=== PATIENT | female | born 1970 | race Caucasian/White ===

== ENCOUNTER 2021-09-09 08:27 | Outpatient (REF) | payer OTHER, MEDICAID, SELFPAY ==
--- NOTE | ~2021-09-09 | US_ITS ---
EXAMINATION: US ABDOMEN COMPLETE CLINICAL INFORMATION: Epigastric pain. COMPARISON: None TECHNIQUE: Real-time imaging of the abdominal viscera. FINDINGS: PANCREAS: The visualized pancreas is normal in size and contour and echogenicity. No pancreatic ductal distention. Distal body and tail obscured by bowel gas and not completely imaged. ABDOMINAL AORTA: The proximal, mid, and distal segments are normal in caliber. INFERIOR VENA CAVA: Visualized portions are normal. LIVER: The liver is normal in size and smooth in contour. Hepatic parenchyma is homogeneous and within normal. No focal hepatic parenchymal lesion or intrahepatic ductal dilatation. GALLBLADDER: Normal. The gallbladder is physiologically distended without evidence of stones, sludge, polyps, wall thickening or pericholecystic fluid. COMMON BILE DUCT: Mild fullness common duct, measuring 0.8 cm. No visible intraluminal calculus or sludge or wall thickening. RIGHT KIDNEY: No hydronephrosis. No renal calculi or focal parenchymal lesions. The kidney measures 12.2 cm in maximum dimension. There is suspicion for duplicated collecting system. LEFT KIDNEY: Normal. No hydronephrosis. No renal calculi or focal parenchymal lesions. The kidney measures 13.0 cm in maximum dimension. SPLEEN: Normal. The spleen measures 10.9 cm in maximum dimension. FREE FLUID: None. US/US abdomen complete IMPRESSION: 1. Unremarkable gallbladder. Mild fullness common duct, 8 mm. No intrahepatic ductal dilatation. 2. Visualized pancreas unremarkable. 3. No hydronephrosis.
== END 2021-09-09 08:28 | disposition home or self-care (01) ==
LOC: HO.HMGCX 08:27
PROVIDERS: Visit Provider Internal Medicine
DX: R10.13 Epigastric pain (principal)
CPT/HCPCS: 76700

== ENCOUNTER 2021-10-23 14:10 | Outpatient (REF) | payer OTHER, MEDICAID, SELFPAY ==
[2021-10-23 14:56] LABS: Alanine Aminotransferase 16 U/L (0-31); Alkaline Phosphatase 90 U/L (39-117); Aspartate Amino Transferase 15 U/L (5-31); Bilirubin Direct 0.2 mg/dL (0.0-0.5); Bilirubin Total 0.4 mg/dL (0.0-1.0)
== END 2021-10-23 14:11 | disposition home or self-care (01) ==
LOC: HO.LAB 14:10
PROVIDERS: PCP Internal Medicine; Visit Provider Internal Medicine
DX: K83.9 Disease of biliary tract, unspecified (principal)
CPT/HCPCS: 36415; 80076

== ENCOUNTER 2024-10-17 10:13 | Outpatient (REF) | payer OTHER, SELFPAY ==
--- OUTSIDE RECORDS SUMMARY | 2024-10-17 11:27 | XMS_ITS | Data Portability ---
Author Organization [facility] Service Address [address] [place] [address] Assessment Encounter Date Assessment Date Assessment LastModified by Organization Details LastModified Time 09/06/2021 09/06/2021 Patient agreed and verbally consents to this audio and video Telehealth appt via a secure platform [email or web address] Not available 09/06/2021 13:38:47 Plan of Treatment Reminders Order Date Submit Date Provider Last Modified By Organization Details Last Modified Time Details Appointments ANNUAL EXAM 2024 09:30A M PEPE WHITTAKER Not available Not available Not available ANNUAL EXAM 2025 09:30A M PEPE WHITTAKER Not available Not available Not available Lab lh + FSH, serum 2024 025 [facility], [address] [place] [address], [id number], 10/17/2024 10:02:13 progest erone, serum 2024 025 [facility], [address] [place] [address], [address], 10/17/2024 10:02:12 estradi ol, serum 2024 025 [facility], [address] [place] [address], [address], 10/17/2024 10:02:13 CMP, serum or plasma 2024 025 [facility], [address] [place] [address], [address], 10/17/2024 10:02:12 CBC w/ auto diff 2024 025 [facility], [address] [place] [address], [address], 10/17/2024 10:02:12 lipid panel, blood 2024 025 [facility], [address] [place] [address], [address], 10/17/2024 10:02:13 TSH + free T4, serum 2024 025 [facility], [address] [place] [address], [address], 10/17/2024 10:02:12 vitamin D, 25-hydr oxy, total, serum 2024 025 [facility], [address] [place] [address], [address], 10/17/2024 10:02:12 hemoglo bin A1c, QN, blood 2024 025 [facility], [address] [place] [address], [address], 10/17/2024 10:02:13 vitamin B12 + folate, serum or blood 2024 025 [facility], [address] [place] [address], [address], 10/17/2024 10:02:12 PTH (parath yroid hormone ), intact + calcium , serum or plasma 2023 024 [email or web address] (Centralized Electronic Ordering - All Locations), Patient Can Go To The Location Of Their Choice, [id number] 10/09/2023 10:38:05 CMP, serum or plasma 2023 024 [facility] (Centralized Electronic Ordering - All Locations), Patient Can Go To The Location Of Their Choice, [id number] 10/09/2023 10:38:05 CBC w/ auto diff 2023 024 [facility] (Centralized Electronic Ordering - All Locations), Patient Can Go To The Location Of Their Choice, 10/09/2023 10:38:05 lipid panel, blood 2023 024 [facility] (Centralized Electronic Ordering - All Locations), Patient Can Go To The Location Of Their Choice, 10/09/2023 10:38:05 CMP, serum or plasma 2021 022 [facility] (Centralized Electronic Ordering - All Locations), Patient Can Go To The Location Of Their Choice, 08/12/2022 16:35:17 CBC w/ auto diff 2021 022 [facility] (Centralized Electronic Ordering - All Locations), Patient Can Go To The Location Of Their Choice, 08/12/2022 16:35:17 lipid panel, blood 2021 022 [facility] (Centralized Electronic Ordering - All Locations), Patient Can Go To The Location Of Their Choice, [id number] 08/12/2022 16:35:[address] & immunol ogist referra l 2022 023 [email or web address] Not available 12/02/2022 09:09:44 gastroe nterolo gist referra l 2022 023 [email or web address] Charley Mcmanus MD, [address], [place], [address], 04/17/2023 08:35:48 Procedures None recorde d. Surgeries None recorde d. Imaging XR, chest, 2 view 2022 023 [facility], [address], [place], [address], 12/01/2022 13:12:18 XR, sinuses , paranas al, 3 or more view 2021 022 [email or web address] [facility] ([facility]), [address], [place], [address], 09/13/2021 09:55:04 Medication Orders Wixela Inhub 500 mcg-50 mcg/dos e powder for inhalat ion 2024 025 [facility], [address] , [place], [address], 10/17/2024 10:05:22 albuter ol sulfate HFA 90 mcg/act uation aerosol inhaler 2024 025 [facility], [address] , [place], [address], 10/17/2024 10:05:22 paroxet ine 10 mg tablet 2023 024 [facility]1230, [address] [facility], [place], [address], 11/03/2023 10:31:53 montelu kast 10 mg tablet 2022 023 [facility], [address] , [place], [address], 12/01/2022 10:59:55 budeson shadi 32 mcg/act uation nasal spray 2022 023 [facility], [address] , [place], [address], 10/09/2023 10:29:14 Trelegy Ellipta 100 mcg-62. 5 mcg-25 mcg powder for inhalat ion 2022 023 [facility], [address] , [place], [address], 01/08/2024 15:00:38 famotid ine 40 mg tablet 2022 023 [facility], [address] [facility], [place], [address], 12/01/2022 11:03:56 bupropi on HCl XL 150 mg 24 hr tablet, extende d release 2021 022 [facility], [address] [facility] [facility], [facility], [place], [address], 08/12/2022 16:23:30 doxycyc line hyclate 100 mg tablet 2021 022 [email or web address] [facility]1230, [address] [facility], [place], [address], 10/09/2023 10:30:08 Patient TargetsNo targets recorded. 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 [address], [place], [address], 08/12/2022 08:49:52 10/24/19 22 10/23/2021 XR, sinus es, paran finn, 3 or more view No observ ation record ed. [facility] ([facility]) [address], [place], [address], 10/23/2021 16:11:02 11/02/19 22 11/01/2021 MAMMO , scree lenny, digit al, bilat eral No observ ation record ed. [address] ([facility]) [address], [place], [address], 11/02/2021 09:31:56 12/02/19 23 12/01/2022 XR, chest , 2 view No observ ation record ed. [email or web address] [place] [address] Radiology [address] [place], [address], 12/01/2022 14:27:22 04/15/20 23 04/15/2023 MAMMO , scree lenny, digit al, bilat eral No observ ation record ed. [email or web address] ([facility]) [address], [place], [address], 04/16/2023 08:40:32 11/24/19 24 11/24/2023 XR, chest , 2 view No observ ation record ed. [facility] [address] [place], [address], 11/27/2023 09:22:06 12/16/19 24 12/16/2023 CT, chest , w/o contr ast No observ ation record ed. [facility] [address] [place], [address], 12/18/2023 08:56:22 Result Notes None recorded. Problems Name Problem SNOMED Code Status Onset Date Resolution Date Notes Provider Name and Address Organization Details Recorded Time Celiac disease 805078170 Active 2017 Not Available [facility] 02:41:29 Asthma 929811559 Active 2017 Not Available [facility] 3 02:41:29 Anxiety 43057381 Active 2017 Not Available [facility] 02:41:29 Depressive disorder 02788327 Active 2017 Not Available [facility] 3 02:41:29 Hiatal hernia 60275763 Active 2020 Not Available [facility] 3 02:41:29 Cough 86408700 Active 2022 Not Available [facility] 3 02:41:29 Asthmatic bronchitis 611581958 Active 2022 Not Available [facility] 3 02:41:29 Allergic rhinitis 82907139 Active 2022 Not Available [facility] 3 02:41:29 Gastroesop hageal reflux disease 386973030 Active 2022 Not Available [facility] 3 02:41:29 Infection of tick bite 067627037 Active 2022 PEPE WHITTAKER [address] [place] [address], [address], [facility] 3 10:02:21 Perimenopa usal disorder 204210922 Active 2023 PEPE WHITTAKER [address] [place] [address], [address], [facility] 4 10:31:49 Chronic cough 60851394 Active 2023 PEPE WHITTAKER [address] [place] [address], [address], [facility] 4 08:56:44 Migraine 42448707 Active 2023 PEPE WHITTAKER [address] [place], [address], [facility] 4 14:59:17 COVID-19 252856565 Active 2023 PEPE WHITTAKER [address] [place], [address], [facility] 4 12:16:19 Exacerbati on of intermitte nt asthma 160613272 Active 2023 PEPE WHITTAKER [address] [place], [address], [facility] 4 16:45:48 Streptococ althea sore throat 23843397 Active 2024 PEPE WHITTAKER [address] [place], [address], [facility] 5 11:25:51 Menopause Active 2024 PEPE WHITTAKER [address] [place], [address], [facility] 5 09:57:05 Moderate persistent asthma 817464080 Active 2024 PEPE WHITTAKER [address] [place], [address], [facility] 5 10:07:46 Notes:Some problems listed i n Documents: #[id number], #[id number] could not be added to this patient's chart. Please review these documents and add these problems to the patient's chart manually as needed. Problem Notes None recorded. Procedures Surgical History Date Name Laterality Status Provider Name and Address Organization Details Recorded Time 05/28/2020 Date of Last Pap Smear completed Jane Gipson [facility] 06/06/2020 08:32:01 Imaging Results Imaging Date Name Status [facility]Modified by [facility] Details LastModified Time 10/23/2021 XR, sinuses, paranasal, 3 or more view completed [email or web address] [facility]) [address], [place], [address], 10/23/2021 16:11:02 11/01/2021 MAMMO, screening, digital, bilateral completed [email or web address] [facility]) [address], [place], [address], 11/02/2021 09:31:56 12/01/2022 XR, chest, 2 view completed [email or web address] [facility] [address] [place], [address], 12/01/2022 14:27:22 04/15/2023 MAMMO, screening, digital, bilateral completed [email or web address] [facility]) [address], [place], [address], 04/16/2023 08:40:32 11/24/2023 XR, chest, 2 view completed [facility] [address] [place], [address], 11/27/2023 09:22:06 12/16/2023 CT, chest, w/o contrast completed [facility] [address] [place], [address], 12/18/2023 08:56:22 Procedure Notes None recorded. Medical Equipment None Reported. Allergies Allergen ID Allergen Name Allergen Category Reaction Reaction Severity Criticality Documentation Date Start Date Code Code System Note Provider Name and Address Organization Details Recorded Time 2284 wheat gluten extract food Not available Not available Not available 05/05/2018 46812 81 RxNorm Tangela negrete [place] - [facility] 8 16:23:12 No known drug allergies Medications Name Sig Start Date Stop Date Status Note LastModified by Organization Details LastModified Time Prescriptio n - Renewal 11/10 completed Not Available Not Available Not Available cyclobenzap rine 10 mg tablet 07/31 completed Not Available Not Available Not Available budesonide 32 mcg/actuati on nasal spray TAKE 1 SPRAY EVERY DAY BY NASAL ROUTE 10/09 completed Not Available Not Available Not Available prednisone 10 mg tablet TAKE 6 TABLETS DAILY FOR 2 DAYS, 5 TABS X 2, 4 TABS X 2, 3 TABS X 2, 2 TABS X 2, 1 TAB X 2 09/16 completed Not Available Not Available Not Available doxycycline hyclate 100 mg capsule TAKE 1 CAPSULE BY MOUTH TWICE A DAY FOR 10 DAYS 12/01 completed Not Available Not Available Not Available paroxetine 10 mg tablet TAKE 1 TABLET BY MOUTH EVERY DAY FOR 30 DAYS 2023 active Not Available Not Available Not Avai lable cefuroxime axetil 250 mg tablet Take 1 tablet every 12 hours by oral route. 03/15 completed Not Available Not Available Not Available azithromyci n 250 mg tablet TAKE 2 TABLETS BY MOUTH TODAY, THEN TAKE 1 TABLET DAILY FOR 4 DAYS DIRECTED 09/16 completed Not Available Not Available Not Available fluconazole 150 mg tablet TAKE 1 TABLET A SINGLE DOSE BY MOUTH THEN REPEAT 1 DOSE IN 3 DAYS active Not Available Not Available No t Available sucralfate 1 gram tablet 03/15 completed Not Available Not Available Not Available famotidine 40 mg tablet TAKE 1 TABLET BY MOUTH EVERY DAY active Not Available Not Available No t Available sumatriptan 50 mg tablet TAKE ONE TABLET FOR MIGRAINE CAN REPEAT AFTER ONE HOUR IF NO IMPROVEME NT MAX 200 MG active Not Available Not Available No t Available topiramate 25 mg tablet TAKE 1 TABLET BY MOUTH EVERY DAY FOR 30 DAYS active Not Available Not Available No t Available omeprazole 40 mg capsule,del ayed release TAKE 1 CAPSULE BY MOUTH EVERY DAY active Not Available Not Available No t Available bupropion HCl 100 mg tablet 1 po daily 03/15 completed Not Available Not Available Not Available amoxicillin 875 mg tablet TAKE 1 TABLET BY MOUTH EVERY 12 HOURS FOR 7 DAYS 10/17 completed Not Available Not Available Not Available cephalexin 500 mg capsule TAKE 1 CAPSULE BY MOUTH THREE TIMES A DAY FOR 5 DAYS 08/12 completed Not Available Not Available Not Available omeprazole 20 mg capsule,del ayed release TAKE 1 CAPSULE BY MOUTH EVERY DAY 12/01 completed Not Available Not Available Not Available montelukast 10 mg tablet TAKE 1 TABLET BY MOUTH EVERY DAY active Not Available Not Available No t Available ranitidine 150 mg capsule 03/15 completed Not Available Not Available Not Available azelastine 137 mcg (0.1 %) nasal spray USE 2 SPRAYS NASALLY TWICE A DAY DIRECTED active Not Available Not Available No t Available methylpredn isolone 4 mg tablets in a dose pack USE DIRECTED. 10/17 completed Not Available Not Available Not Available albuterol sulfate HFA 90 mcg/actuati on aerosol inhaler TAKE 2 PUFFS BY MOUTH EVERY 4 HOURS 2024 active Not Available Not Available Not Avai lable cefdinir 300 mg capsule Take 1 capsule every 12 hours by oral route for 10 days. 11/10 completed Not Available Not Available Not Available topiramate 100 mg tablet TAKE 1 TABLET BY MOUTH EVERY DAY active Not Available Not Available No t Available fluticasone propionate 50 mcg/actuati on nasal spray,suspe nsion SPRAY 2 SPRAYS INTO EACH NOSTRIL EVERY DAY active Not Available Not Available No t Available doxycycline hyclate 100 mg tablet TAKE 1 TABLET BY MOUTH TWICE A DAY FOR 14 DAYS 10/09 completed Not Available Not Available Not Available amoxicillin 875 mg-potassiu m clavulanate 125 mg tablet TAKE 1 TABLET BY MOUTH EVERY 12 HOURS FOR 7 DAYS 10/09 completed Not Available Not Available Not Available bupropion HCl XL 300 mg 24 hr tablet, extended release TAKE 1 TABLET BY MOUTH EVERY DAY active Not Available Not Available No t Available bupropion HCl XL 150 mg 24 hr tablet, extended release TAKE 1 TABLET BY MOUTH EVERY DAY active Not Available Not Available No t Available topiramate 50 mg tablet TAKE 1 TABLET BY MOUTH EVERY DAY active Not Available Not Available No t Available Trelegy Ellipta 100 mcg-62.5 mcg-25 mcg powder for inhalation INHALE 1 PUFF INTO THE LUNGS EVERY DAY 01/07 completed Not Available Not Available Not Available Wixela Inhub 250 mcg-50 mcg/dose powder for inhalation INHALE 1 PUFF BY MOUTH TWICE A DAY 10/17 completed Not Available Not Available Not Available Wixela Inhub 500 mcg-50 mcg/dose powder for inhalation Inhale 1 puff twice a day by inhalatio n route as directed for 30 days. 2024 active Not Available Not Available Not Avai lable Fluzone Quad (PF) 60 mcg (15 mcg x 4)/0.5 mL IM syringe 04/22 completed Not Available Not Available Not Available Paxlovid 300 mg (150 mg x 2)-100 mg tablets in a dose pack Take 1 dose pk by oral route. 09/16 completed Not Available Not Available Not Available Vitals Date Recorded Body height Body mass index (BMI) Body weight Heart rate Oxygen saturation Oxygen saturation in Arterial blood by Pulse oximetry Systolic blood pressure Diastolic blood pressure Provider Name and Address Organization Details Last Updated DateTime 2 161.29 cm 27.5 kg/m2 72482.8 g 74 /min 98 % 98 % 110 mm[Hg] 68 mm[Hg] PEPE WHITTAKER [address] [place], [address] [place] [address] Internal Medicine 2 15:55:20 Date Recorded Body height Body mass index (BMI) Body weight Heart rate Oxygen saturation Oxygen saturation in Arterial blood by Pulse oximetry Systolic blood pressure Diastolic blood pressure Provider Name and Address Organization Details Last Updated DateTime 3 161.29 cm 27.2 kg/m2 38109.4 1 g 82 /min 99 % 99 % 152 mm[Hg] 84 mm[Hg] Erika Forbes [facility] 3 10:37:06 Date Recorded Body height Body mass index (BMI) Body weight Heart rate Oxygen saturation Oxygen saturation in Arterial blood by Pulse oximetry Systolic blood pressure Diastolic blood pressure Provider Name and Address Organization Details Last Updated DateTime 4 161.29 cm 27.2 kg/m2 58645.4 1 g 60 /min 98 % 98 % 128 mm[Hg] 80 mm[Hg] Erika Forbes [facility] 4 10:23:15 Date Recorded Body height Body mass index (BMI) Body weight Heart rate Oxygen saturation Oxygen saturation in Arterial blood by Pulse oximetry Systolic blood pressure Diastolic blood pressure Provider Name and Address Organization Details Last Updated DateTime 5 161.29 cm 24.7 kg/m2 25550.9 6 g 68 /min 97 % 97 % 124 mm[Hg] 82 mm[Hg] Paula Canseco [facility] 5 09:37:04 Social History Question Answer Notes LastModified by Organizat ion Details LastModified Time Tobacco Smoking Status Never Smoker Not Available [facility] 06/26/2020 03:36:23 What Was The Date Of Your Most Recent Tobacco Screening? 10/17/2024 [email or web address] Information not available 10/17/2024 Do You Or Have You Ever Used Any Other Forms Of Tobacco Or Nicotine? No [email or web address] Information not available 08/12/2022 Sex: Unknown Functional Status None recorded. Mental Status None recorded. Family History Relationship Description Onset Age of this Age Resolved Age Notes LastModified by Organization Details LastModified Time Mother Mitral valve stenosis 62 [email or web address] Not available 2017 15:09:40 Medical History Condition Response Coronary Artery Disease N Gout N Other Kidney Stones N Blood Diseases N Hyperthyroidism N Blood Transfusion N Breast Cancer N COPD N Depression N Lung Disease N Hypothyroidism N Defects or Inherited Disease N Difficulty Swallowing N Meniere's disease N Anxiety Disorder Y Muscle, Joint, or Bone Problems N Obesity N Vision or Eye Problems Y Arthritis N Mental Disorder N Cancer N Stroke N Endometriosis N Bladder or Kidney Problems N High Cholesterol N Liver Disease N Headaches Y Fibromyalgia N Kidney Disease N Allergies/Hayfever Y Heart Problems N Hospitalizations N Thyroid Problems N GI Problems N Eating Disorder N Skin Problems Y Anemia Y MRSA exposure N Constipation Y Mental Illness N Diabetes N Seizures/Epilepsy N Tuberculosis N Congestive Heart Failure (CHF) N Eczema Y Abuse/Domestic Violence N Diverticulitis N Asthma Y Reflux/GERD Y Hepatitis N Heart Disease N Pulmonary Embolism N Chronic Ear Infections N Hypertension N Chicken Pox Y Autism Spectrum Disorder (ASD) N Thrombophilias N Gynecological History Statement/Question Response Abnormal Pap N Date of LMP 10/30/2019 On BCP's at Conception? Y HPV Vaccine N Age at Menarche 15 Current Control Method Partner Vas ectomy Age at First Child 24 Frequency of Cycle (Q days) 28 Sexually Active? Y Menses Monthly Y Date of Last Pap Smear 05/28/2020 Sexual Problems? Y LMP Definite Obstetrics History GPAL:G 4 P 3 0 1 3 Type Value Full Term 3 Spontaneous 1 Living 3 Total 4 Immunizations Vaccine Type Date Status Note Provider Nam e and Address Organization Details Recorded Time Influenza, split virus, quadrivalent, preservative 1 completed Not Available [facility] 12/04/2022 02:41:29 influenza, unspecified formulation 2 completed Not Available [facility] 12/04/2022 02:41:29 influenza, unspecified formulation 4 completed PEPE WHITTAKER [address] [place], [address], [facility] 10/17/2024 09:44:32 Influenza, split virus, quadrivalent, preservative 9 completed Not Available [facility] 12/04/2022 02:41:29 Influenza, split virus, quadrivalent, preservative 0 completed Not Available [facility] 12/04/2022 02:41:29 COVID-19, mRNA, LNP-S, PF, 100 mcg/0.5mL dose or 50 mcg/0.25mL dose 1 completed Not Available [facility] 12/04/2022 02:41:29 COVID-19, mRNA, LNP-S, PF, 100 mcg/0.5mL dose or 50 mcg/0.25mL dose 1 completed Not Available [facility] 12/04/2022 02:41:29 Past Encounters Encounter ID Performer Location Encounter Start Date Encounter Closed Date Diagnosis/Indication Diagnosis SNOMED-CT Code Diagnosis ICD10 Code Diagnosis Note [id number] Linn Dorman NP, S [facility] Internal Medicine [address] [facility],[place] [address] 05/07/2018 14:59:41 05/07/2018 16:39:45 Adult health examination 259423472 Z00.01 Active or passive immunization 052858165 Z23 Moderate p ersistent asthma 148017628 J45.40 Gastroesop hageal reflux disease 151277593 K21.9 Acute sinusitis 20696467 J01.90 Celiac disease 839397967 K90.0 follow gluten free diet Anxiety 31545992 F41.9 stable with wellbutrin [id number] November [facility] Internal Medicine [address] [facility],[place] [address] 03/15/2019 14:42:14 03/15/2019 15:48:52 Dyspnea on exertion 09594724 R06.09 since november had CTA in ER and was negative she was treated with pred with relief at the time Atypical chest pain 1025 59409 R07.89 x 1 year had 2 ekgs in er both were normal Dysphagia 83002089 R13.1 0 had seen gi for EGD a year ago and it was normal except for a small HH Acute sinusitis 32483637 J01.90 [id number] November [facility] Internal Medicine [address] [facility],[place] [address] 03/25/2019 10:10:59 03/25/2019 10:42:37 Acute sinusitis 77537011 J01.90 failed augmentin Dyspnea on exertion 6084 5006 R06.09 not really bothersome at this time Atypical chest pain 1025 46534 R07.89 not bothersome at this time Hoarse 75009805 R49.0 still has post nasal drip tried nasal spray but too congested recommend mucinex - d [id number] CHRISTINE Jackson [facility] Internal [facility] [address] [facility] [employer] [facility] [employer] [address] [place] [address] 11/11/2019 14:27:40 11/11/2019 15:19:10 Active or passive immunization 297518293 Z23 Asthma 576712495 J45.90 9 Anxiety 89546401 F41.9 controlled through lifestyle, no meds Depressive disorder 3548 9007 F32.9 controlled through lifestyle, no meds Acute exac erbation of asthma 844539903 J45.901 Adult heal th examination 632423253 Z00.00 Screening for malignant neoplasm of colon [id number] Z12.11 [id number] PEPE WHITTAKER [facility] Internal Medicine [address] [facility],[place] [address] 06/20/2020 11:10:15 06/20/2020 14:53:46 Acute sinusitis [id number] J01.90 will try on abx will call if no improvemen t or worsening symptoms Nasal congestion 2038832 0 R09.81 not relieved with sudafed Headache 95500264 R51.9 started with sinus pressure and congestion [id number] PEPE WHITTAKER [facility] Internal Medicine [address] [employer] [address] [place] [address] 11/19/2020 11:26:00 11/19/2020 15:29:23 Acute sinusitis 96673272 J01.90 pt has hx of recurrent sinus infection and clinical presentati on is that of a sinus infection will start on augementin Hiatal hernia 14066240 K 44.[address] Estrada her GI specialist to discuss this if not happy or would like a second opinion with referral to another GI specialist Headache 96625774 R51.9 started with sinus pressure and congestion , can use APAP and ibu for pain relief [id number] PEPE WHITTAKER [facility] Internal Medicine [address] [employer] [address] [place] [address] 07/31/2021 15:26:58 08/02/2021 10:18:25 Active or passive immunization 018803784 Z23 advised Adult heal th examination 267204005 Z00.00 BP is excellent Generalize d anxiety disorder 92335889 F41.1 will start on bupropion again Gastroesop hageal reflux disease 246699382 K21.9 will send script Fatigue 23924268 R53.83 will retest her iron [id number] PEPE WHITTAKER [facility] Internal Medicine [address] [facility], [place] [address] 08/13/2021 10:29:30 08/13/2021 16:02:14 Acute sinusitis 80046193 J01.01 will start treatment for sinus infection Exacerbati on of intermittent asthma 529598077 J45.21 new wheezing, treat for flare up due to URI Anxiety 26762354 F41.1 increase dose, fu in two to three weeks [id number] PEPE WHITTAKER [facility] Internal Medicine [address] [facility], [place] [address] 09/06/2021 11:27:51 09/13/2021 09:55:04 Acute sinusitis 24618368 J01.01 will start treatment for sinus infection [id number] PEPE WHITTAKER [facility] Internal Medicine [address] [facility] [address] 08/12/2022 15:24:21 08/12/2022 16:55:03 Active or passive immunization 399330126 Z23 patient advised she is due for tdap Adult heal th examination 678134242 Z00.00 BP is excellent Asthma 558561107 J45.20 stable Anxiety 78513687 F41.1 increase dose, fu in two to three weeks 31071 PEPE WHITTAKER [facility] Internal Medicine [address] [employer] [address] [place], [address] [employer] [place] [address] 12/01/2022 10:27:33 12/01/2022 11:32:58 Acute sinusitis 69904343 J01.01 will start treatment for sinus infection Cough 82605589 R05.3 related to allergies and recovering from prior bronchitis Asthma 780396849 J45.41 agreed to starting alt additional inhalers Hiatal hernia 53810952 K 44.9 agreed to second opinion with alt GI Allergic rhinitis 119082 04 J30.2 will set up with allergists et up with singulair as well to see if works in [facility] Gastroesop hageal reflux disease 573139259 K21.00 switch to famotidine no effect with omeprazole [id number] PEPE WHITTAKER [facility] Internal Medicine [address] [facility],[place] [address] 10/09/2023 10:08:15 10/09/2023 13:58:54 Perimenopausal disorder 429098794 N95.1 will set up with trial of paxil for the symptomswi ll check calcium levels Adult heal th examination 359180990 Z00.00 BP is excellent [id number] PEPE WHITTAKER [facility] Internal Medicine [address] [facility],[place] [address] 10/17/2024 09:27:13 10/17/2024 10:23:06 Active or passive immunization 943770186 Z23 patient advised she is due for tdappatien t advised she is due shingles Adult heal th examination 651787801 Z00.00 BP is excellent Depression screening 171 367358 Z13.31 SCREENING NEGATIVE Menopause 757322810 N95. 1 will check her levels to see if she is in menopause in order to start the HRT discussed at today's appt Moderate p ersistent asthma 304049739 J45.40 needs refill of inhaler Asthma 035180165 J45.41 agreed to starting alt additional inhalers Health Concerns Section Related Observation LastModified by Organization Detai ls LastModified Time None Recorded Concern Status LastModified by Organization Details LastModified Time None Recorded Advance Directives Directive None Recorded Payers Encounter Date Sequence Insurance Name Policy Number Policy Lance Covered Member ID Lance Member ID Guarantor Name 09/06/2021 2 [facility]ICAID-[facility] PRIOR TO 11/22/2022 - [facility] (MEDICAID) Nancy Perez [id number] Nancy Boudreaux 09/06/2021 1 [facility] [id number] Nancy Boudreaux [id number] Nancy Boudreaux 08/12/2022 2 [place] PRIOR [place] 2022 - [facility] (MEDICAID) Nancy Perez [id number] Nancy Ramos Janusz 08/12/2022 1 [facility] [id number] Nancy Ramos Janusz [id number] Nancy Ramos Janusz 12/01/2022 2 [place]IOR [place] 2022 - [facility] (MEDICAID) Nancy Perez [id number] Nancy Ramos Janusz 12/01/2022 1 [facility] [id number] Nancy Ramos Janusz [id number] Nancy Ramos Janusz 10/09/2023 1 [employer] [id number] Nancy Ramos Janusz [id number] Nancy Ramos Janusz 10/09/2023 2 [place] [facility] Nancy Ramos Janusz [id number] Nancy Ramos Janusz 10/17/2024 1 [employer] [id number] Nancy Ramos Janusz [id number] Nancy Ramos Janusz Notes Date Note Type Note Provider Name a nd Address Organization Details Recorded Time 2 text/html c/o headache, sinus pain, tele-med patientpatient consents to phone call the patient reports that she has still has symptoms of a sinus infectionthe patient is not able to produce mucus but is swallowing it, states it tastes awful the patient states she has nausea, headache, sinus pain, post-nasal dripreports that the pain and headache is really bothersome will fu with XR of the sinuses to r/o obstructive process/inflammation of the sinuses will fu next week PEPE WHITTAKER [address] [place] [address], [phone], [facility] Internal [facility] 09/06/2021 13:45:59 2 text/html Annual WellnessReported bypatient.Diet and Nutrition:healthy diet; discussed vitamin and supplement use; discussed portion control; discussed maintaining calcium balance; discussed diet improvement Fracture Risk:no history of fractures; no recent explained fracture; no sudden unexplained fractures; no previous musculoskeletal injuries Physical Activity:exercises on a regular basis; recent increase in physical activity; good physical condition; discussed weightbearing activities; discussed exercise habits Additional Lifestyle Factors:no tobacco use; drinks alcohol (mild-moderate) Depression Risk:never feels sad, empty, or tearful; no loss of interest in activities; no significant changes in weight; no sleep disturbances or insomnia; no agitation; no loss of energy; no feelings of worthlessness or guilt; no thoughts of suicide; no history of depression; no history of mood disorders Hearing:no loss of hearing Vision:no vision problems the wellbutrin is better of 300 mg XLwould like to add the 150 mg onto it as well PEPE WHITTAKER [address] [place] [address], [phone], [facility] Internal Medicine 08/12/2022 16:34:29 3 text/html f/u chronic sinusitis the patient has a constant cough, post-nasal drip, ear fullness, sinus pressuredoes have seasonal allergies (has a hard time with meds; they usually don't work) the patient reports that she felt posteriorly of her head that she has a lumpsometimes a little tender but otherwise no other symptoms the patient has hx of hiatal hernia, which may be worseningneeded second opinion of GI set up treatment plan and medication adjustment PEPE WHITTAKER [address] [place] [address], [phone], [facility] Internal Medicine 12/01/2022 11:17:30 4 text/html Annual WellnessReported bypatient.Diet and Nutrition:healthy diet; discussed vitamin and supplement use; discussed portion control; discussed maintaining calcium balance; discussed diet improvement Fracture Risk:no history of fractures; no recent explained fracture; no sudden unexplained fractures; no previous musculoskeletal injuries Physical Activity:exercises on a regular basis; recent increase in physical activity; good physical condition Additional Lifestyle Factors:no tobacco use; no alcohol intake; stopped drinking alcohol Depression Risk:never feels sad, empty, or tearful; no loss of interest in activities; no significant changes in weight; no sleep disturbances or insomnia; no agitation; no loss of energy; no feelings of worthlessness or guilt; no thoughts of suicide; no history of depression; no history of mood disorders Hearing:no loss of hearing Vision:no vision problems has generalized rash on the backwill take benadryl PEPE WHITTAKER [address] [place] [address], [phone], [facility] Internal Medicine 10/09/2023 10:43:53 text/html Annual WellnessReported bypatient.Diet and Nutrition:healthy diet; discussed vitamin and supplement use; discussed portion control; discussed maintaining calcium balance; discussed diet improvement Fracture Risk:no history of fractures; no recent explained fracture; no sudden unexplained fractures; no previous musculoskeletal injuries Physical Activity:exercises on a regular basis; recent increase in physical activity; good physical condition Additional Lifestyle Factors:no tobacco use; no alcohol intake; stopped drinking alcohol Depression Risk:never feels sad, empty, or tearful; no loss of interest in activities; no significant changes in weight; no sleep disturbances or insomnia; no agitation; no loss of energy; no feelings of worthlessness or guilt; no thoughts of suicide; no history of depression; no history of mood disorders Hearing:no loss of hearing Vision:no vision problems PEPE WHITTAKER [address] [place], [phone], [facility] Internal Medicine 10/17/2024 10:08:23 OBGyn Episode No OBEpisode recorded.
--- OUTSIDE RECORDS SUMMARY | 2024-10-17 11:27 | XMS_ITS ---
Author Organization [facility] Address [address] [place] [phone] Care Team Providers Care Billboard Mechanic Name Role Phone Med Crain Primary Care Provider Chris Yoon [phone] REASON FOR VISIT Patient presents today for discuss EGD Encounters Encounter Location Date Provider Diagnosis [facility] [address] [place] [phone] 05/24/2024 Chris Joyner PLAN OF TREATMENT No Information
--- OUTSIDE RECORDS SUMMARY | 2024-10-17 11:27 | XMS_ITS | Clinical Summary ---
Author Organization [facility] Address [phone] [place] [address] Care Team Providers Care Custom Bike Builder Name Role Phone Pcp, Unknown Primary Care Provider Unavailabl e Social History Tobacco Use Types Packs/Day Years Used Date Smoking Tobacco: Never Assessed Education Answer Date Recorded Are you interested in more education? Not on diallo e 12/20/2022 Are you concerned about learning? Not on file 12/20/2022 No 12/20/2022 No 12/20/2022 Digital Access Answer Date Recorded No 01/20/2023 No 01/20/2023 Reliable internet access at home? Not on file 01/20/2023 Device with a working camera? Not on file Sex and Gender Information Value Date Recorded Sex Assigned at Not on file Gender Identity Not on file Sexual Orientation Not on file Plan of Treatment Health Maintenance Due Date Last Done Comments Adult Td,Tdap Booster 1972 LIPID PANEL 1972 DEPRESSION SCREENING 1984 SMOKING Hx and SMOKELESS TOBACCO SCREENING 1985 HEPATITIS B SCREENING 1990 HEPATITIS C SCREENING 1990 HIV ONE-TIME SCREENING (18-6 5 YEARS) 1990 HEPATITIS B VACCINES (1 of 3 - 19+ 3-dose series) 1991 PAP SMEAR 1993 MAMMOGRAM 2012 COLOGUARD 2017 COLONOSCOPY 2017 COLORECTAL CANCER SCREENING 2017 FIT TEST 2017 FOBT 2017 SIGMOIDOSCOPY 2017 VIRTUAL COLONOSCOPY 2017 PNEUMOCOCCAL VACCINES (50+ years) (1 of 1 - PCV) 2022 ZOSTER VACCINES (1 of 2) 2022 INFLUENZA VACCINE (#1) 2024 07/24/2021 COVID-19 VACCINE (3 - 2023-2 5 season) 2024 02/06/2021, 12/19/2020 HEPATITIS A VACCINES Aged Out No long er eligible based on patient's age to complete this topic HIB VACCINES Aged Out No longer eligi ble based on patient's age to complete this topic MENINGOCOCCAL VACCINES (ACWY) Aged Out No longer eligible based on patient's age to complete this topic Medical Devices Not on file Care Teams Custom Bike Builder Relationship Specialty Start Date End Date Pcp, Unknown PCP - General 03/06/21 Additional Source Comments The information contained in this document represents components of the legal health record. It is not the complete legal health record.[facility]
--- OUTSIDE RECORDS SUMMARY | 2024-10-17 11:27 | XMS_ITS ---
Author Organization [facility] Address [address] [place] [phone] Care Team Providers Care Notch Machine Operator Name Role Phone Med Crain Primary Care Provider Chris Yoon [phone] Encounters Encounter Location Date Provider Diagnosis [facility] [address] [place] [address] 05/24/2024 Chris Joyner PLAN OF TREATMENT No Information
[2024-10-17 13:52] LABS: MANUAL DIFF FLAG NO
[2024-10-17 14:01] LABS: Basophils Absolute Auto 0.1 X10*3/uL (0.0-0.2); Basophils Percent Auto 1.1 % (0-2); Eosinophils Absolute Auto 0.3 X10*3/uL (0.0-0.4); Eosinophils Percent Auto 6.3 % (0-4); Hematocrit 41.5 % (37.0-47.0); Hemoglobin 13.9 g/dl (12.0-16.0); Imm Gran Abs Auto 0.02 X10*3/uL (0.00-0.03); Imm Gran Pct Auto 0.4 % (0.0-0.4); Lymphocytes Absolute Auto 1.9 X10*3/uL (1.2-4.9); Lymphocytes Percent Auto 35.7 % (20-40); Mean Corpuscular HGB Conc 33.5 g/dl (31.0-35.0); Mean Corpuscular Hemoglobin 29.4 pg (27.0-33.0); Mean Corpuscular Volume 87.7 fL (80.0-98.0); Mean Platelet Volume 9.7 fL (9.4-12.3); Monocytes Absolute Auto 0.6 X10*3/uL (0.1-1.2); Monocytes Percent Auto 10.1 % (2-11); Neutrophils Absolute Auto 2.5 x10*3/uL (2.0-8.3); Neutrophils Percent Auto 46.4 % (45-73); Platelet Count 233 X10*3/uL (160-400); Red Blood Count 4.73 X10*6/uL (4.20-5.50); Red Cell Distribution Width 13.1 % (11.0-16.0); White Blood Count 5.4 X10*3/uL (4.8-10.8)
[2024-10-17 14:08] LABS: Estimated Average Glucose 97 mg/dL; Hemoglobin A1C 113.6347 umol/L; Total Hemoglobin (HGBA1C) 3587.9422 umol/L
[2024-10-17 14:33] LABS: Alanine Aminotransferase 25 U/L (0-31); Albumin Level 4.1 g/dL (3.5-5.0); Alkaline Phosphatase 83 U/L (39-117); Anion Gap 11 (12-20); Aspartate Amino Transferase 26 U/L (5-31); Bilirubin Total 0.3 mg/dL (0.0-1.0); Blood Urea Nitrogen 12 mg/dL (9-16); Calcium 9.9 mg/dL (8.4-10.2); Carbon Dioxide 21 mmol/L (22-29); Chloride 111 mmol/L (96-108); Cholesterol 172 mg/dL (<200); Estimated Glomerular Filt Rate > 60; Glucose Random 94 mg/dL (60-115); HDL Cholesterol 68 mg/dL (>40); LDL Cholesterol Calculated 80 mg/dL (<100); Potassium 3.5 mmol/L (3.3-5.1); Sodium 139 mmol/L (135-145); Thyroid Stimulating Hormone 2.91 uIU/mL (0.32-4.0); Total Protein 7.6 g/dL (6.5-8.0); Triglycerides 120 mg/dL (<150)
[2024-10-17 14:34] LABS: Vitamin B12 710 pg/mL (200-900)
[2024-10-17 15:14] LABS: T4 Thyroxine 6.2 ug/dL (4.5-12.0)
[2024-10-18 09:04] LABS: Follicle Stimulating Hormone 150.8 mIU/mL; Lutenizing Hormone 109.3 mIU/mL
[2024-10-22 06:38] LABS: VITAMIN D (1,25 OH) D3 55 pg/mL; Vit D (1,25-Dihydroxy) Total 55 pg/mL (18-72); Vitamin D (1,25 OH) D2 <8 pg/mL
[2024-10-23 01:49] LABS: Estradiol Ultra Sensitive 11 pg/mL
== END 2024-10-17 10:14 | disposition home or self-care (01) ==
LOC: HO.MANLDS 10:13
PROVIDERS: Visit Provider Physician Assistant
DX: Z00.00 Encounter for general adult medical examination without abnormal findings (principal); N95.1 Menopausal and female climacteric states; Z13.220 Encounter for screening for lipoid disorders; Z13.1 Encounter for screening for diabetes mellitus; Z13.29 Encounter for screening for other suspected endocrine disorder
CPT/HCPCS: 36415; 80053; 80061; 82607; 82652; 82670; 83001; 83002; 83036; 84144; 84436; 84443; 85025

== ENCOUNTER 2025-06-19 06:31 | Day surgery (SDC) | payer OTHER, SELFPAY ==
--- OUTSIDE RECORDS SUMMARY | 2024-05-24 05:00 | XMS_ITS ---
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 Name Role Phone Med [facility] Primary Care Provider Chris Yoon [phone] REASON FOR VISIT Patient presents today for discuss EGD Encounters Encounter Location Date Provider Diagnosis [facility] [address] [facility] [address] [place] [id number] 05/24/2024 Chris Joyner Plan Of Treatment Next Appt Details Provider Name:Chris Joyner , 06/19/2025 07:30:00 AM, [address] [place] [address], [phone], Progress Notes * AMBIKA BOUDREAUX ADOB: 3 (54 yo F)Acc No.[id number]:05/24/2024 Progress Notes Patient: AMBIKA HERRERA Provider: Lashaun Joyner MD :1970 A ge:53 Y S ex:Female Date:05/24/2024 Address:[address] [place] [address] Pcp:Med Crain Subjective: * Chief Complaints: * 1 . Patient presents today for discuss EGD. * Medical History: Objective: * Vitals: Assessment: Plan: * Treatment: * * The named appointment provid er may or may not be the originator of this progress note, and it is not deemed complete until electronically signed by the appointment provider. Sign off status: Pending * Provider: Lashaun Joyner MD Date: 1 Generated for Rosy hall/Rachid/Guero on: 0 05/10/2025 11:23 AM EDT
--- OUTSIDE RECORDS SUMMARY | 2025-05-10 11:23 | XMS_ITS | Patient Health Record ---
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 Role Phone Med Crain Primary Care Provider Chris Yoon [phone] Allergies Allergen (clinical drug ingredient) Drug/Non Drug Allergy documented on EMR Reaction Allergy Type Onset Date Status mold,dust,grass,tree s, animals,pollen (uncoded) Unknown Allergy Active Reason For Referral No Information Medications Medication SIG (Take, Route, Frequency, Duration) Notes Start Date End Date Status Advair Diskus 250-50 MCG/DOSE INHALE 1 PUFF BY MOUTH 2 TIMES A DAY Inhalation for 30 Active Omeprazole 20 MG 1 capsule 30 minutes before morning meal Orally Once a day for 30 day(s) Active Fish Oil Active ProAir HFA 108 (90 Base) MCG/ACT INHALE 2 PUFFS BY MOUTH EVERY 4 HOURS Inhalation for 25 Active Topiramate 50 MG 1 tablet Orally Once a day Active Estradiol 1 MG 1 tablet Orally Once a day Active Progesterone 100 MG 1 capsule at bedtime Orally Once a day Active Magnesium Active Vitamin B Complex Ac tive Vitamin D 25 MCG (1000 UT) 1 tablet Oral ly Once a day for 30 day(s) Active Immunizations Vaccine Route Administration Date Status Comme nts Influenza Unknown 04/24/2019 Administered Influenza Unknown 07/24/2021 Administered Influenza Unknown 06/14/2024 Administered Social History Tobacco Use: Social History Observation Description Date Details (start date - stop date) Never Smoker NA - NA Tobacco Use/Smoking Question Answer Notes Patient is a nonsmoker Alcohol Screen Question Answer Notes Did you have a drink contain ing alcohol in the past year? Yes How often did you have a dri nk containing alcohol in the past year? 2 to 3 times a week (3 points) How many drinks did you have on a typical day when you were drinking in the past year? 1 or 2 drinks (0 point) Points 3 Interpretation Positive Section Notes: Nonsmoker; no sig alcohol Nonsmoker; no sig alcohol Nonsmoker; no sig alcohol Nonsmoker; no sig alcohol Problems Problem Type SNOMED Code ICD Code Onset Dates Problem Status W/U Status Risk Notes Problem 018734218 Encounter for screening for malignant neoplasm of colon (Z12.11) Active confirmed Problem Abdominal bloating (133790230) Abdominal bloating (R14.0) Active confirmed Problem 052202752 Celiac disease (K90.0) Active confirmed Problem 504187537 Family history o f colonic polyps (Z83.71) Active confirmed Problem 12352128 Abdominal pain, epigastric (R10.13) Active confirmed Problem 811332912 Gastroesophageal reflux disease, esophagitis presence not specified (K21.9) Active confirmed Problem 394759852 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) Active confirmed Problem Constipation (96904538) Constipation, unspecified constipation type (K59.00) Active confirmed Problem 5702943431769 Family history o f colorectal cancer (Z80.0) Active confirmed Vital Signs Temperature 99.3 degrees Fahrenheit 02/28/2025 Blood pressure diastolic 01 mm Hg 02/28/2025 Height 65 in 02/28/2025 Blood pressure systolic 001 mm Hg 02/28/2025 Weight 136.4 lbs 02/28/2025 BMI 22.7 kg/m2 02/28/2025 Procedures Procedure Date Ordered Date Performed Result Body Sit e UPPER GI ENDOSCOPY 02/28/2025 N/A COLONOSCOPY 02/28/2025 N/A Encounters Encounter Location Date Provider Diagnosis [facility] [address] [place] [phone] 02/28/2025 Chris Joyner Gastroesophageal ref lux disease, esophagitis presence not specified K21.9 ; Abdominal pain, epigastric R10.13 ; Celiac disease K90.0 ; Family history of colorectal cancer Z80.0 ; Encounter for screening for malignant neoplasm of colon Z12.11 ; Family history of colonic polyps Z83.71 and Constipation, unspecified constipation type K59.00 [facility] [address] [place] [address] 05/24/2024 Chris Joyner [facility] [address] [place] [id number] 03/12/2025 Chris Joyner [facility] [address] [place] [phone] 03/16/2025 Chris Joyner Assessments Encounter Date Diagnosis (ICD Code) Assessment Notes Treatment Notes Treatment Clinical Notes Section Notes 02/28/2025 Abdominal pain, epigastric (ICD-10 - R10.13) Overall, Yolanda appears quite well. We did review that a lot of her abdominal complaints might be related to constipation as she does describe at least several days at a time without a bowel movement. I did advise her that could be certainly contributing to her fullness, upper abdominal discomfort, and somewhat decreased appetite. I did advise her to try to use some gluten-free fiber supplement with plenty of water and/or MiraLAX on a regular basis. I did recommend a follow-up colonoscopy for further screening given her significant family history and her last colonoscopy being about 5 years ago. We did review the rationale for this in regard to colon cancer prevention. Given the ongoing upper GI complaints with abdominal discomfort and some increasing reflux I did recommend an upper endoscopy on the same day as well. I will obtain follow-up duodenal biopsies to reevaluate her celiac disease as well. I will also check celiac disease laboratories today. Full consent has been obtained from her for both procedures, including risks of bleeding and perforation. The procedures will be done with monitored anesthesia care. I will order a follow-up abdominal ultrasound given the ongoing upper abdominal complaints to again rule out gallstones, particularly in relation to her significant weight loss I did advise Yolanda to contact me prior to the procedures if she has any problems or questions I can be of assistance with. Yolanda and her were comfortable with this plan. Thank you again for allowing me to participate in Yolanda's care. I shall continue to keep you advised of her progress. 02/28/2025 Gastroesophageal reflux disease, esophagitis presence not specified (ICD-10 - K21.9) Overall, Yolanda appears quite well. We did review that a lot of her abdominal complaints might be related to constipation as she does describe at least several days at a time without a bowel movement. I did advise her that could be certainly contributing to her fullness, upper abdominal discomfort, and somewhat decreased appetite. I did advise her to try to use some gluten-free fiber supplement with plenty of water and/or MiraLAX on a regular basis. I did recommend a follow-up colonoscopy for further screening given her significant family history and her last colonoscopy being about 5 years ago. We did review the rationale for this in regard to colon cancer prevention. Given the ongoing upper GI complaints with abdominal discomfort and some increasing reflux I did recommend an upper endoscopy on the same day as well. I will obtain follow-up duodenal biopsies to reevaluate her celiac disease as well. I will also check celiac disease laboratories today. Full consent has been obtained from her for both procedures, including risks of bleeding and perforation. The procedures will be done with monitored anesthesia care. I will order a follow-up abdominal ultrasound given the ongoing upper abdominal complaints to again rule out gallstones, particularly in relation to her significant weight loss I did advise Yolanda to contact me prior to the procedures if she has any problems or questions I can be of assistance with. Yolanda and her were comfortable with this plan. Thank you again for allowing me to participate in Yolanda's care. I shall continue to keep you advised of her progress. 02/28/2025 Celiac disease (ICD-10 - K90.0) Overall, Yolanda appears quite well. We did review that a lot of her abdominal complaints might be related to constipation as she does describe at least several days at a time without a bowel movement. I did advise her that could be certainly contributing to her fullness, upper abdominal discomfort, and somewhat decreased appetite. I did advise her to try to use some gluten-free fiber supplement with plenty of water and/or MiraLAX on a regular basis. I did recommend a follow-up colonoscopy for further screening given her significant family history and her last colonoscopy being about 5 years ago. We did review the rationale for this in regard to colon cancer prevention. Given the ongoing upper GI complaints with abdominal discomfort and some increasing reflux I did recommend an upper endoscopy on the same day as well. I will obtain follow-up duodenal biopsies to reevaluate her celiac disease as well. I will also check celiac disease laboratories today. Full consent has been obtained from her for both procedures, including risks of bleeding and perforation. The procedures will be done with monitored anesthesia care. I will order a follow-up abdominal ultrasound given the ongoing upper abdominal complaints to again rule out gallstones, particularly in relation to her significant weight loss I did advise Yolanda to contact me prior to the procedures if she has any problems or questions I can be of assistance with. Yolanda and her were comfortable with this plan. Thank you again for allowing me to participate in Yolanda's care. I shall continue to keep you advised of her progress. 02/28/2025 Family history of colorectal cancer (ICD-10 - Z80.0) Overall, Yolanda appears quite well. We did review that a lot of her abdominal complaints might be related to constipation as she does describe at least several days at a time without a bowel movement. I did advise her that could be certainly contributing to her fullness, upper abdominal discomfort, and somewhat decreased appetite. I did advise her to try to use some gluten-free fiber supplement with plenty of water and/or MiraLAX on a regular basis. I did recommend a follow-up colonoscopy for further screening given her significant family history and her last colonoscopy being about 5 years ago. We did review the rationale for this in regard to colon cancer prevention. Given the ongoing upper GI complaints with abdominal discomfort and some increasing reflux I did recommend an upper endoscopy on the same day as well. I will obtain follow-up duodenal biopsies to reevaluate her celiac disease as well. I will also check celiac disease laboratories today. Full consent has been obtained from her for both procedures, including risks of bleeding and perforation. The procedures will be done with monitored anesthesia care. I will order a follow-up abdominal ultrasound given the ongoing upper abdominal complaints to again rule out gallstones, particularly in relation to her significant weight loss I did advise Yolanda to contact me prior to the procedures if she has any problems or questions I can be of assistance with. Yolanda and her were comfortable with this plan. Thank you again for allowing me to participate in Yolanda's care. I shall continue to keep you advised of her progress. 02/28/2025 Encounter for screening for malignant neoplasm of colon (ICD-10 - Z12.11) Overall, Yolanda appears quite well. We did review that a lot of her abdominal complaints might be related to constipation as she does describe at least several days at a time without a bowel movement. I did advise her that could be certainly contributing to her fullness, upper abdominal discomfort, and somewhat decreased appetite. I did advise her to try to use some gluten-free fiber supplement with plenty of water and/or MiraLAX on a regular basis. I did recommend a follow-up colonoscopy for further screening given her significant family history and her last colonoscopy being about 5 years ago. We did review the rationale for this in regard to colon cancer prevention. Given the ongoing upper GI complaints with abdominal discomfort and some increasing reflux I did recommend an upper endoscopy on the same day as well. I will obtain follow-up duodenal biopsies to reevaluate her celiac disease as well. I will also check celiac disease laboratories today. Full consent has been obtained from her for both procedures, including risks of bleeding and perforation. The procedures will be done with monitored anesthesia care. I will order a follow-up abdominal ultrasound given the ongoing upper abdominal complaints to again rule out gallstones, particularly in relation to her significant weight loss I did advise Yolanda to contact me prior to the procedures if she has any problems or questions I can be of assistance with. Yolanda and her were comfortable with this plan. Thank you again for allowing me to participate in Yolanda's care. I shall continue to keep you advised of her progress. 02/28/2025 Family history of colonic polyps (ICD-10 - Z83.71) Overall, Yolanda appears quite well. We did review that a lot of her abdominal complaints might be related to constipation as she does describe at least several days at a time without a bowel movement. I did advise her that could be certainly contributing to her fullness, upper abdominal discomfort, and somewhat decreased appetite. I did advise her to try to use some gluten-free fiber supplement with plenty of water and/or MiraLAX on a regular basis. I did recommend a follow-up colonoscopy for further screening given her significant family history and her last colonoscopy being about 5 years ago. We did review the rationale for this in regard to colon cancer prevention. Given the ongoing upper GI complaints with abdominal discomfort and some increasing reflux I did recommend an upper endoscopy on the same day as well. I will obtain follow-up duodenal biopsies to reevaluate her celiac disease as well. I will also check celiac disease laboratories today. Full consent has been obtained from her for both procedures, including risks of bleeding and perforation. The procedures will be done with monitored anesthesia care. I will order a follow-up abdominal ultrasound given the ongoing upper abdominal complaints to again rule out gallstones, particularly in relation to her significant weight loss I did advise Yolanda to contact me prior to the procedures if she has any problems or questions I can be of assistance with. Yolanda and her were comfortable with this plan. Thank you again for allowing me to participate in Yolanda's care. I shall continue to keep you advised of her progress. 02/28/2025 Constipation, unspecified constipation type (ICD-10 - K59.00) Try some daily fiber supplement like 2 Metamucil fiber pills with a lot of water and/or Miralax to help with the constipation. Overall, Yolanda appears quite well. We did review that a lot of her abdominal complaints might be related to constipation as she does describe at least several days at a time without a bowel movement. I did advise her that could be certainly contributing to her fullness, upper abdominal discomfort, and somewhat decreased appetite. I did advise her to try to use some gluten-free fiber supplement with plenty of water and/or MiraLAX on a regular basis. I did recommend a follow-up colonoscopy for further screening given her significant family history and her last colonoscopy being about 5 years ago. We did review the rationale for this in regard to colon cancer prevention. Given the ongoing upper GI complaints with abdominal discomfort and some increasing reflux I did recommend an upper endoscopy on the same day as well. I will obtain follow-up duodenal biopsies to reevaluate her celiac disease as well. I will also check celiac disease laboratories today. Full consent has been obtained from her for both procedures, including risks of bleeding and perforation. The procedures will be done with monitored anesthesia care. I will order a follow-up abdominal ultrasound given the ongoing upper abdominal complaints to again rule out gallstones, particularly in relation to her significant weight loss I did advise Yolanda to contact me prior to the procedures if she has any problems or questions I can be of assistance with. Yolanda and her were comfortable with this plan. Thank you again for allowing me to participate in Yolanda's care. I shall continue to keep you advised of her progress. Plan Of Treatment Pending Test Test Name Order Date UPPER GI ENDOSCOPY 02/28/2025 COLONOSCOPY 02/28/2025 LIVER PROFILE 09/18/2021 LIVER PROFILE 01/11/2020 T4 (THYROXINE) 01/11/2020 TSH (THYROID STIMULATING HORMONE) 2019 IRON + IBC (FE) 01/11/2020 FERRITIN 01/11/2020 VITAMIN B12 AND FOLATE 01/11/2020 CBC w DIFF 01/11/2020 CELIAC PANEL #10 01/11/2020 US ABD 07/24/2021 Celiac Panel 10 02/28/2025 US abdomen complete 02/28/2025 Future Test Test Name Order Date UPPER GI ENDOSCOPY 05/25/2018 UPPER GI ENDOSCOPY 01/11/2020 COLONOSCOPY 01/11/2020 Next Appt Details Provider Name:Chris Joyner , 06/19/2025 07:30:00 AM, [address] [place] [address] , [place], [place], [phone], Insurance Providers Payer Name Payer Address Payer Phone Subscriber Number Group Number Insured Name Patient Relationship to Insured Coverage Start Date Coverage End Date Diversified Radha [address] [place] [phone] [id number] AMBIKA BOUDREAUX Self - patient is the insured Medical (General) History Medical History History ICD Code Denies [place],DM,CVA,renal disease Asthma Celiac disease---diagnosed i n 03/[address] Hendricks--duodenal biopsies in 05/2018 showed some villous flattening and lympocytes, but improved from 2008 Anxiety- mild EGD in 05/2018 with a small HH, no esophagitis, no Chavira's, duodenal biopsies as above Colonoscopy in March of 2020 was negati ve except for a hyperplastic polyp Upper endoscopy in March of 2020 revealed duodenal biopsies showing some active celiac disease with some villous blunting and increased intraepithelial lymphocytes; she also had a small hiatal hernia but there was no evidence of any Chavira's esophagus nor eosinophilic esophagitis; gastric biopsies were negative for H. pylori. Negative abdominal ultrasoun d in 2021, other than a borderline dilated common bile duct. She had a completely normal liver profile after that. Surgical History Surgery Date(Month/Year)
--- OUTSIDE RECORDS SUMMARY | 2025-05-10 11:23 | XMS_ITS | Clinical Summary ---
Author Organization [facility] Address [address] [place] [phone] Phone Care Team Providers Care Legal Secretary Name Role Phone Pcp, Unknown Primary Care [...] with a working camera? Not on file Comments Unknown Sex and Gender Information Value Date Recorded Sex Assigned at Not on file Legal Sex Female 8:30 AM EDT Gender Identity Not on file Sexual Orientation Not on file Plan of Treatment Health Maintenance Due Date Last Done Comments Adult Td,Tdap Booster 1972 LIPID PANEL 1972 DEPRESSION SCREENING 1984 SMOKING Hx and SMOKELESS TOBACCO SCREENING 1985 HEPATITIS C SCREENING 1990 HIV ONE-TIME SCREENING (18-6 5 YEARS) 1990 PAP SMEAR 1993 MAMMOGRAM 2012 COLOGUARD 2017 COLONOSCOPY 2017 COLORECTAL CANCER SCREENING 2017 FIT TEST 2017 FOBT 2017 SIGMOIDOSCOPY 2017 VIRTUAL COLONOSCOPY 2017 PNEUMOCOCCAL VACCINES (50+ years) (1 of 1 - PCV) 2022 ZOSTER VACCINES (1 of 2) 2022 COVID-19 VACCINE (3 - 2023-2 5 season) 2024 02/06/2021, 12/19/2020 HEPATITIS A VACCINES Aged Out No long er eligible based on patient's age to complete this topic HIB VACCINES Aged Out No longer eligi ble based on patient's age to complete this topic MENINGOCOCCAL VACCINES (ACWY) Aged Out No longer eligible based on patient's age to complete this topic MENINGOCOCCAL VACCINES (B) Aged Out N o longer eligible based on patient's age to complete this topic Medical Devices Not on file Insurance [facility] Address: [address] [address] [facility] [address] [place], [place] [address] [facility] Address: [address] [address] [facility] Care Teams Legal Secretary Relationship Specialty Start Date End Date Pcp, Unknown PCP - General 03/06/21 Additional Source Comments The information contained in this document represents components of the legal health record. It is not the complete legal health record.[facility]
--- NOTE | 2025-06-15 08:45 | HO.ANESPROP2 ---
Documented by User: Bailee Najera NP 06/15/25 08:46 HPI - Anesthesia Eval Consult details Narrative: 54yo F for Upper Endoscopy and Colonoscopy [facility] Past Medical History Medical History (Updated 06/15/25 @ 08:46 by Bailee Najera NP) Anxiety Celiac disease Asthma Surgical History Surgical History (Updated 06/19/25 @ 06:50 by Amberly Esparza RN) History of biopsy H/O wisdom tooth extraction H/O colonoscopy H/O esophagogastroduodenoscopy Social History Social History Advance Directives: No Advance Directives Information Provided: Yes Meds Allergies Allergy/AdvReac Type Severity Reaction Status Date / Time No Known Allergies Allergy Verified 06/19/25 06:49 Home Medications ?Medication ?Instructions ?Recorded ?Confirmed ?Last Taken ?Type albuterol sulfate 90 mcg/actuation 2 puff inhalation Q4H 06/15/25 06/15/25 Unknown History aerosol inhaler cholecalciferol (vitamin D3) 25 25 mcg PO DAILY 06/15/25 06/15/25 Unknown History mcg (1,000 unit) tablet (Vitamin D3) estradiol 1 mg tablet 1 mg PO DAILY 06/15/25 06/15/25 Unknown History fluticasone 500 mcg-salmeterol 50 1 ea inhalation BID 06/15/25 06/19/25 06/19/25 History mcg/dose blistr powdr for inhalation (Wixela Inhub) magnesium oxide 200 mg PO DAILY 06/15/25 Unknown History omega 3-olu-fcy-fish oil 1,200 mg 1 cap PO DAILY 06/15/25 06/15/25 Unknown History (144 mg-216 mg) capsule (Fish Oil) omeprazole 40 mg capsule,delayed 40 mg PO DAILY 06/15/25 06/15/25 Unknown History release progesterone micronized 200 mg 200 mg PO DAILY 06/15/25 06/15/25 Unknown History capsule topiramate 100 mg tablet 100 mg PO DAILY 06/15/25 06/15/25 Unknown History vitamin B complex 1 cap PO DAILY 06/15/25 06/15/25 Unknown History Assessment and Plan Assessment Anesthesia Assessment: Chart Reviewed Documented by User: Delfina Ng MD 06/19/25 07:02 [facility] Past Medical History Medical History (Updated 06/15/25 @ 08:46 by Bailee Najera NP) Anxiety Celiac disease Asthma Family History Family history of problems with anesthesia: No Surgical History Surgical History (Updated 06/19/25 @ 06:50 by Amberly Esparza RN) History of biopsy H/O wisdom tooth extraction H/O colonoscopy H/O esophagogastroduodenoscopy History of Problems with Anesthesia: No Social History Social History Advance Directives: No Advance Directives Information Provided: Yes Meds Allergies Allergy/AdvReac Type Severity Reaction Status Date / Time No Known Allergies Allergy Verified 06/19/25 06:49 Home Medications ?Medication ?Instructions ?Recorded ?Confirmed ?Last Taken ?Type albuterol sulfate 90 mcg/actuation 2 puff inhalation Q4H 06/15/25 06/15/25 Unknown History aerosol inhaler cholecalciferol (vitamin D3) 25 25 mcg PO DAILY 06/15/25 06/15/25 Unknown History mcg (1,000 unit) tablet (Vitamin D3) estradiol 1 mg tablet 1 mg PO DAILY 06/15/25 06/15/25 Unknown History fluticasone 500 mcg-salmeterol 50 1 ea inhalation BID 06/15/25 06/19/25 06/19/25 History mcg/dose blistr powdr for inhalation (Wixela Inhub) magnesium oxide 200 mg PO DAILY 06/15/25 Unknown History omega 4-wdt-ktq-fish oil 1,200 mg 1 cap PO DAILY 06/15/25 06/15/25 Unknown History (144 mg-216 mg) capsule (Fish Oil) omeprazole 40 mg capsule,delayed 40 mg PO DAILY 06/15/25 06/15/25 Unknown History release progesterone micronized 200 mg 200 mg PO DAILY 06/15/25 06/15/25 Unknown History capsule topiramate 100 mg tablet 100 mg PO DAILY 06/15/25 06/15/25 Unknown History vitamin B complex 1 cap PO DAILY 06/15/25 06/15/25 Unknown History Exam Airway Mallampati Class: II TM Dist: >3cm Neck ROM: Full Heart: rrr Lungs: cta Assessment and Plan Assessment Anesthesia Assessment: Anesthesia Plan Discussed Final Anesthetic Review Family History of Problems with Anesthesia: No History of Problems with Anesthesia: No NPO: Yes ASA Class: II Final Preanesthetic Review: No Changes in Pt Med Stat, Meds/Allgs Chart Reviewed and Consent Obtained/Reviewed Patient Risk: Low Procedure Risk: Low Anesthetic Plan Anesthetic Plan: MAC: Disposition: Standard PACU
[2025-06-15 13:48] VITALS: BMI 22.6
[2025-06-19 06:43] VITALS: BMI 22.6
[2025-06-19 07:08] VITALS: BP 140/71; PULSE 65; RESP 16; TEMP 36.2; O2SAT 98
[2025-06-19] MEDS: Lactated Ringers 1,000 ML 100 ML IVCONT (07:13)
[2025-06-19 08:38] VITALS: BP 127/71; PULSE 76; RESP 12; TEMP 36.4; O2SAT 98
[2025-06-19 08:45] VITALS: BP 115/66; PULSE 74; RESP 12; O2SAT 98
[2025-06-19 09:00] VITALS: BP 99/62; PULSE 65; RESP 12; O2SAT 98
[2025-06-19 09:15] VITALS: BP 126/60; PULSE 69; RESP 12; TEMP 36.1; O2SAT 100
--- NOTE | 2025-06-19 09:22 | OP_ITS ---
DATE OF SERVICE: 06/19/2025 SURGEON: Chris Joyner MD INDICATIONS: The patient presents for evaluation of abdominal discomfort, gastroesophageal reflux, family history of colorectal cancer and polyps, and colorectal cancer screening. Full consent obtained from her for this, including risks of bleeding and perforation. PREOPERATIVE DIAGNOSIS: Gastroesophageal reflux, abdominal discomfort, family history of colorectal cancer and polyps, colorectal cancer screening. POSTOPERATIVE DIAGNOSIS: Gastroesophageal reflux, abdominal discomfort, family history of colorectal cancer and polyps, colorectal cancer screening, hiatal hernia, reflux esophagitis, history of celiac disease, colon polyps, diverticulosis, and internal hemorrhoids. PROCEDURE PERFORMED: Esophagogastroduodenoscopy with biopsies and colonoscopy to the cecum with biopsy removal of polyps. ESTIMATED BLOOD LOSS: COMPLICATIONS: ANESTHESIA: Monitored anesthesia care. ASSISTANTS: SPECIMENS: DESCRIPTION OF PROCEDURE: The patient was placed in left lateral decubitus position. The Olympus video gastroscope was passed in the posterior oropharynx and upper esophagus under direct vision. The scope was passed slowly into the distal esophagus. The gastroesophageal junction appeared at 36 cm. Extending from this to 35 cm, there were some slight erosions consistent with reflux. The gastroesophageal junction was slightly irregular, but no definitive evidence of Chavira esophagus was seen. There were no lesions. The scope entered the stomach. There was a small hiatal hernia. The scope was advanced to pylorus, and the duodenum was cannulated to the descending portion. The duodenum including the bulb was inspected carefully. Biopsies were obtained from the 2nd and 3rd portions of duodenum given her history of celiac disease and the appearance of the duodenum with some slight scalloping and what appeared to be some diminished number of duodenal folds. The duodenal bulb appeared normal. The scope was withdrawn back to the stomach. The gastric antrum and body appeared normal with good peristalsis. Biopsies were obtained from the antrum. The scope was retroflexed, visualizing the proximal stomach carefully, which appeared normal, without any sign of mass or ulceration. The scope was straightened and withdrawn back to the esophagus. Biopsies were obtained between 35 and 36 cm. Proximal to this, the esophageal mucosa appeared normal. The scope was withdrawn from the patient. She was turned around for colonoscopy. The digital rectal exam revealed no abnormalities. The Olympus video pediatric colonoscope was entered into the rectum and advanced easily to the cecum. Once in the cecum I did identify a cecal pouch with appendiceal orifice and a normal-appearing ileocecal valve. The entire cecum was well visualized and appeared normal other than a 3 or 4 mm polyp, which was biopsied and completely removed with cold biopsy forceps. The scope was then slowly withdrawn, assessing all mucosal surfaces carefully. Preparation was excellent. In the ascending colon, there was a flat approximately 3 or 4 mm polyp, which was biopsied and completely removed with cold biopsy forceps. I did not visualize any other polyps, colitis, nor angiodysplasia. There are occasional diverticula noted in the sigmoid colon. In the rectum, scope was retroflexed visualizing internal hemorrhoids, but no other pathology. The rectal mucosa appeared normal. The scope was straightened and withdrawn from the patient. She tolerated both procedures well and was returned to recovery area in stable condition. IMPRESSION: 1. Small hiatal hernia, reflux esophagitis, history of celiac disease. 2. Colon polyps. 3. Occasional sigmoid diverticulosis. 4. Internal hemorrhoids. PLAN: The results of the pathology will be checked. She has been advised to continue her daily omeprazole. She has been advised to continue her gluten free diet. I would recommend a repeat colonoscopy in 5 years for further screening given the family history even if the polyps are not tubular adenomas. She was advised not to use any aspirin and NSAIDs for 1 week. She was advised to continue her fiber and MiraLax to help with her constipation. MD NISHA Godoy/ANGELIC / [phone]
--- NOTE | 2025-06-19 16:48 | P.BOP_ITS ---
Brief Operative Note Date of Service: 06/19/25 Pre-op diagnosis: GERD, History of celiac disease, Screening Post-op diagnosis: other (Same, Hiatal hernia, Colon polyps) Procedure: EGD with biopsies, and Colonoscopy to the cecum with biopsies with removal of polyps Surgeon: Chris Joyner MD Anesthesia: MAC Was an Dye House Wheel Operator used for this Procedure?: No Estimated blood loss (mL): 2.0 Pathology: other (A. 2nd and 3rd portions of duodenum B. Gastric antrum C. Esophagus 35 to 36cm D. Cecal polyp E. Ascending colon polyp) Condition: stable Disposition: PACU
== END 2025-06-19 09:37 | disposition home or self-care (01) ==
PROVIDERS: PCP Internal Medicine; Visit Provider Internal Medicine
PROC: (CPT 45380; principal; 2025-06-19 07:30)
DX: Z12.11 Encounter for screening for malignant neoplasm of colon (principal); Z80.0 Family history of malignant neoplasm of digestive organs; Z83.719 Family history of colon polyps, unspecified; K44.9 Diaphragmatic hernia without obstruction or gangrene; K21.00 Gastro-esophageal reflux disease with esophagitis, without bleeding; K64.8 Other hemorrhoids; D12.2 Benign neoplasm of ascending colon; D12.0 Benign neoplasm of cecum
CPT/HCPCS: 45380; 43239; 88305; 88313; 88342; J2003; J2704